=== PATIENT | male | born 1980 | race Caucasian/White ===

== ENCOUNTER 2024-11-15 08:28 | Outpatient (CLI) | payer OTHER ==
[~2024-11-15] VITALS: Ht 190.5 cm; Wt 117.9 kg
[2024-11-15] MEDS: albuterol 2.5 MG/3 ML nebule NEB ONE (09:06)
[2024-11-15 09:07] VITALS: PULSE 85; RESP 16; O2SAT 97
[2024-11-15 09:22] VITALS: PULSE 99; RESP 16
== END 2024-11-15 23:59 | disposition home or self-care (01) ==
LOC: RT 08:28
PROVIDERS: ATTEND Chiropractor
DX: J42 Unspecified chronic bronchitis (principal)
CPT/HCPCS: 71046; 94060; 94760

== ENCOUNTER 2025-04-21 14:01 | Outpatient (CLI) | payer MEDICAID ==
--- NOTE | 2025-04-21 18:34 | RADIOLOGY REPORT ---
PROCEDURE: MR MRI HEAD INDICATION: VISUAL DISTURBANCE EXAM DATE: 04/21/2025 02:49 PM COMPARISON: None TECHNIQUE: MRI of the brain and orbits without intravenous contrast. FINDINGS: Diffusion weighted images of the brain demonstrate no evidence of acute infarction. There is no evidence of acute intracranial hemorrhage, extra-axial collection, mass effect, midline s hift, herniation or hydrocephalus. The ventricles, sulci and cisterns appear age appropriate. The signal intensities of the brain parenchyma are within normal limits. Noncontrast orbits appear unremarkable. There are no signal abnormalities on the susceptibility weighted sequences. The major vascular flow voids are present. Bilateral maxillary sinus mucosal thickening with frothy opacification. The surrounding soft tissues and osseous structures are unremarkable. IMPRESSION: 1. No evidence of acute infarction, intracranial hemorrhage, mass effect or hydrocephalus. Maxillary sinusitis. Noncontrast orbits appear unremarkable. HS:Y
== END 2025-04-21 23:59 | disposition home or self-care (01) ==
LOC: MRI02 14:01
PROVIDERS: ATTEND Family Medicine
DX: J32.0 Chronic maxillary sinusitis (principal); H53.9 Unspecified visual disturbance
CPT/HCPCS: 70551